=== PATIENT | female | born 1985 | race Caucasian/White ===

== ENCOUNTER 2019-03-15 20:49 | Inpatient (IN) ==
[2019-03-15] MEDS ORDERED: ZOFRAN IV ONE (21:17)
[2019-03-15] MEDS ORDERED: NS 1,000 ML IV ONE ×2 (21:17→22:33)
[2019-03-15 21:44] LABS: BASO# 0.01 X1000 (0.0-0.2); BASO% 0.1 % (0.0-0.8); EOS# 0.01 X1000 (0.0-0.7); EOS% 0.1 % (0.0-10.0); HEMATOCRIT 38.9 % (37.0-47.0); HEMOGLOBIN 13.2 g/dL (12.0-16.0); IMM GRAN# 0.01 X1000 (0.0-0.04); IMM GRAN% 0.1 % (0.0-0.5); LYMPH# 0.33 X1000 (1.2-3.4); LYMPH% 4.2 % (20.5-51.1); MCHC 33.9 g/dL (33-37); MCV 82.4 FL (81-99); MONO# 0.38 X1000 (0.11-0.59); MONO% 4.9 % (1.7-9.3); MPV 11.2 FL (7.4-10.4); NEUT# 7.06 X1000 (1.4-6.5); NEUT% 90.6 % (42.2-75.2); PLT 190 X1000 (130-400); RBC 4.72 XMIL (4.2-5.4); RDW 12.6 % (11.5-14.5)
[2019-03-15 21:58] LABS: AGAP 13; ALBUMIN 4.4 g/dL (3.5-5.0); ALKALINE PHOSPHATASE 78 U/L (32-104); BUN 12 mg/dL (8-22); CHLORIDE 100 mmol/L (98-107); COSMO 273; CREATININE 0.7 mg/dL (0.5-0.9); ESTIMATED GFR > 60; GLUCOSE 113 mg/dL (70-104); GOT 18 U/L (10-30); GPT 15 U/L (10-36); LIPASE 10 U/L (13-60); POTASSIUM 3.6 mmol/L (3.5-5.1); SODIUM 136 mmol/L (136-145); TCO2 23 mmol/L (25-35); TOTAL PROTEIN 6.9 g/dL (6.3-8.3)
[2019-03-15] MEDS ORDERED: TORADOL IM ONE (22:25)
--- NOTE | 2019-03-15 22:31 | PROVIDER DOCUMENTATION ---
This chart was entered by Tamia Taylor Scribe, acting as scribe for Pedro Lee MD. HPI-General Adult - General Chief Complaint: Nausea/Vomiting Stated Complaint: PASSED OUT Time Seen by Provider: 03/15/19 21:09 Source: patient Allergies/Adverse Reactions: Patient Allergies Allergy/AdvReac Type Severity Reaction Status Date / Time aspirin Allergy NAUSEA/VOMI Verified 08/18/18 10:50 TING meperidine HCl * Allergy Unknown Verified 08/18/18 10:50 [From Demerol] doxycycline AdvReac RASH Verified 03/15/19 20:58 Home Medications: Home Medication List Medication Instructions Recorded Confirmed Last Taken Type Levothyroxine [Synthroid] 75 mcg PO DAILY 06/28/17 03/15/19 Unknown History Ondansetron Odt [Zofran 4 mg Odt] 4 mg PO Q6H PRN PRN #12 tab 03/15/19 Unknown Rx Promethazine [Phenergan] 1 tab PO Q6H PRN PRN #12 tab 03/15/19 Unknown Rx Venlafaxine [Effexor] 75 mg PO DAILY 03/15/19 03/15/19 Unknown History - History of Present Illness -Gen Adult Nature of Presenting Problems: pt is a34 yr old female presenting with 1 day complaint of nausea/vomiting/diarrhea and headache, onset this AM, pt reports diarrhea has resolved but n/v remains. pt reports syncopal episode tonight, no injury with syncope. pt denies any fever/chills or pain Location of Pain/Injury: reports: none Pain Radiation: reports: no radiation Quality of Pain: reports: none Severity: reports: moderate Onset/Duration: reports: this morning (0300) Timing: reports: still present Context/Activities at Onset: reports: sleep Modifying Factors: improves with: other medication (phenergan/zofran without relief) Associated Symptoms: reports: diarrhea, dizziness, fatigue, headaches, nausea, syncope, vomiting, weakness. denies: fever/chills, shortness of breath Similar Symptoms Previously?: No Recently seen or treated by another doctor?: No Review of Systems - Adult - REVIEW OF SYSTEMS - ADULT Constitutional: reports: fatique. denies: chills, fever Eyes: reports: no symptoms reported Ears, Nose, Mouth & Throat: reports: no symptoms reported Cardiovascular: reports: syncope. denies: chest pain, palpitations Respiratory: denies: cough, shortness of breath Gastrointestinal: reports: diarrhea, nausea, vomiting. denies: abdominal pain Genitourinary: denies: dysuria, frequency, flank pain Musculoskeletal: denies: back pain, joint pain, neck pain Integumentary: reports: no symptoms reported Neurological: reports: dizziness/vertigo, headache/migraines, syncope Psychiatric: reports: no symptoms reported Endocrine: reports: no symptoms reported Hematologic/Lymphatic: reports: no symptoms reported Allergic/Immunologic: reports: no symptoms reported All Other Systems: Reviewed and Negative Past History - Adult - PAST MEDICAL HISTORY-ADULT Review of Records: reports: Old Records Reviewed, Nursing Assessment Review, Me dications Reviewed, Social history reviewed & non-contributory. 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) - PRIOR SURGERIES/PROCEDURES Surgical/Procedure History: reports: appendectomy, hysterectomy, bowel surgery (colon resection), other (sinus, ear) - IMMUNIZATION STATUS Childhood Immunizations: See Nurse Assessment Flu Vaccine: See Nurse Assessment - FAMILY HISTORY Family History: reviewed, not pertinent - SOCIAL HISTORY Smoking: denies Substance Use: denies Living Situation: family Physical Exam-General - PHYSICAL EXAM-ADULT Initial Vital Signs Reviewed: Yes - CONSTITUTIONAL General Appearance: appears well, alert, no apparent distress, obese - EYES Eyes: PERRL/EOMI - HEAD, EARS, NOSE, MOUTH & THROAT HENMT: normocephalic/atraumatic, moist mucous membranes, normal ENT inspection - NECK Neck: non-tender, full range of motion, supple, normal inspection - RESPIRATORY Respiratory: chest non-tender, lungs clear, normal breath sounds, no respiratory distress, no accessory muscle use - CARDIOVASCULAR Cardiovascular: normal peripheral pulses, no edema, tachycardia - GASTROINTESTINAL (ABDOMEN) Abdominal Exam: normal bowel sounds, non tender, soft - LYMPHATIC Lymphatic: no adenopathy - MUSCULOSKELETAL Back Exam: normal inspection, no CVA tenderness, no vertebral tenderness Extremity: normal range of motion, non-tender, normal gait, normal inspection - SKIN Integumentary: normal color, normal turgor, warm/dry - NEUROLOGIC Neurologic: grossly normal, no motor/sensory deficits - PSYCHIATRIC Psych/Mental Status: normal mood/affect, normal thought content, normal thought process, oriented x 3 Progress - PLAN OF CARE/RESULTS Progress/Plan/Lab Results: Vital Signs - 8 hr 03/15/19 20:53 Temperature 99.5 F Pulse Rate 126 H Respiratory Rate 18 Blood Pressure 103/72 O2 Sat by Pulse Oximetry 97 Orders Category Date Time Status Saline Loc DIRECTED Care 03/15/19 21:18 Active NPO Diet 03/15/19 21:18 Active CBC WITH ELECTRONIC DIFF [HEME] Stat Lab 03/15/19 21:18 Ordered COMPREHENSIVE METABOLIC PANEL [CHEM] Stat Lab 03/15/19 21:18 Uncollected LIPASE [CHEM] Stat Lab 03/15/19 21:18 Uncollected 0.9% Sodium Chloride Inj [Ns] 1,000 ml Med 03/15/19 21:17 Active IV 999 mls/hr Ondansetron [Zofran] Med 03/15/19 21:17 Discontinued 4 mg IV NOW ONE Result Diagrams: 03/15/19 21:27 03/15/19 21:07 - REASSESSMENT Reassessment #1 Time Reassessed: 22:25 Status: improving Reassessment Comment: results reported to patient, advised to f/u with PCP on Sunday Departure - Departure Date of Disposition Decision: 03/15/19 Time of Disposition Decision: 22:31 DIAGNOSIS: Volume depletion, Diarrheal disease Nausea and vomiting Qualifiers: Vomiting type: unspecified Vomiting Intractability: unspecified Qualified Code(s): R11.2 - Nausea with vomiting, unspecified Disposition: HOME 01 Certified Medical Emergency: Emergent Condition: Stable Additional Instructions: We have examined and treated you today on an emergency basis only. This was not a substitute for, or an effort to provide, complete medical care. In most cases, you must let your doctor check you again. Tell your doctor about any new or lasting problems. We cannot recognize and treat all injuries or illnesses in one Emergency Department visit. Patient verbalizes understanding of treatment plan, medication, and side effects and agrees with treatment plan. Patient leaves ER in stable condition and ambulatory state. Return to ER as needed. Discharge instructions reviewed verbally and given to patient in written form. Follow up with primary care provider on Sunday without fail. Prescriptions: Promethazine [Phenergan] 1 tab PO Q6H PRN PRN #12 tab PRN Reason: Nausea Ondansetron Odt [Zofran 4 mg Odt] 4 mg PO Q6H PRN PRN #12 tab PRN Reason: Nausea Referrals and Follow-Ups: Saul Higuera MD [Primary Care Provider] - - Critical Care Note This patient required my direct & personal management of CC.: No Attestation - Physician/ CAMMIE Attestation Patient care was provided by Advanced Practice Provider:: No The physician spent face to face time with patient:: Yes Advanced Practice Provider documentation review:: Supervising physician onsite and consulted in the evaluation and care of this patient. The physician did have a face to face encounter with the patient. This chart was documented by the indicated scribe, (Tamia Taylor Scribe) and ac curately reflects the services I performed and decisions made by me, Pedro Lee MD, as attested by the provider's signature.
[2019-03-15 23:03] LABS: INFLUENZA A NEGATIVE (NEGATIVE); INFLUENZA B NEGATIVE (NEGATIVE)
[2019-03-16] MEDS ORDERED: ZOFRAN IV PRN (00:06)
[2019-03-16] MEDS ORDERED: MORPHINE IV PRN ×2 (00:06→06:16)
[2019-03-16] MEDS ORDERED: NS 1,000 ML IV ONE (00:06)
[2019-03-16 06:08] LABS: HEMATOCRIT 34.3 % (37.0-47.0); HEMOGLOBIN 11.1 g/dL (12.0-16.0); IMM GRAN# 0.01 X1000 (0.0-0.04); IMM GRAN% 0.3 % (0.0-0.5); LYMPH# 0.58 X1000 (1.2-3.4); LYMPH% 14.8 % (20.5-51.1); MCHC 32.4 g/dL (33-37); MCV 83.5 FL (81-99); MONO# 0.23 X1000 (0.11-0.59); MONO% 5.9 % (1.7-9.3); MPV 11.4 FL (7.4-10.4); NEUT# 3.11 X1000 (1.4-6.5); PLT 143 X1000 (130-400); RBC 4.11 XMIL (4.2-5.4); RDW 12.6 % (11.5-14.5); WBC 3.93 X1000 (4.8-10.8)
[2019-03-16 06:16] LABS: AGAP 8; BUN 9 mg/dL (8-22); CALCIUM 7.6 mg/dL (8.8-10.2); CHLORIDE 109 mmol/L (98-107); COSMO 276; CREATININE 0.5 mg/dL (0.5-0.9); ESTIMATED GFR > 60; GLUCOSE 95 mg/dL (70-104); POTASSIUM 3.2 mmol/L (3.5-5.1); SODIUM 139 mmol/L (136-145); TCO2 21 mmol/L (25-35)
[2019-03-16] MEDS ORDERED: TYLENOL PO PRN (08:05)
[2019-03-16] MEDS ORDERED: SODIUM CHLORIDE 0.9% INJ PRN (08:05)
[2019-03-16] MEDS ORDERED: PHENERGAN IV PRN (08:05)
[2019-03-16] MEDS ORDERED: KLOR-CON PO ONE (08:08)
[2019-03-16] MEDS ORDERED: SODIUM CHLORIDE 0.9% INJ SCH (08:15)
[2019-03-16 08:32] LABS: HEMOGLOBIN A1C 4.5 % (4.8-6.0)
[2019-03-16 08:40] LABS: FREE T4 1.03 ng/dL (0.93-1.70); TSH 0.43 uIUmL (0.27-4.20)
--- NOTE | 2019-03-16 09:38 | Diag Imaging Result Doc PS360 ---
EXAM: ABDOMEN FLAT/UPRIGHT INDICATION: nausea/vomiting/diarrhea TECHNIQUE: 2 views COMPARISON: None. FINDINGS: There are nonspecific bowel gas and stool patterns. There is no obstructive bowel pattern. There is no evidence of large volume free abdominal gas. There is no evidence of organomegaly. IMPRESSION: Nonspecific abdomen. Electronically signed by Leonel Fortune 03/16/2019 9:36 AM
--- NOTE | 2019-03-16 11:00 | HISTORY AND PHYSICAL ---
PRIMARY CARE PROVIDER: Doris Champion. CHIEF COMPLAINT: Nausea, vomiting, diarrhea and passed out. HISTORY OF PRESENT ILLNESS: Ms Ebony Michaels is a 34-year-old female with a medical history of Curtis-Danlos syndrome, migraines, anxiety, Katheryn's, asthma who states that yesterday morning around 3 a.m., she started developing nausea, vomiting, and diarrhea. The severeness of it lasted at least an hour. She finally decided to try and get a up and go back to bed but she passed out. She denies hitting her head and since that time, she has been having headaches when she would sit up or stand up along with dizziness. She was having abdominal cramping yesterday. No vomiting. She did have nausea. Did not have any vomiting. No diarrhea. One more spell of diarrhea this morning but otherwise she can tell that her stomach is starting to feel better. She still continues to feel a little dizzy with headache if she tries to sit up or stand up. Her 5 days prior to also had a viral gastroenteritis as well. PAST MEDICAL HISTORY: 1. Curtis-Danlos syndrome. Symptoms that she has from that as she tends to have prolonged bleeding, the occasional blood in the urine or stool, but none recently and it causes her to have some constipation. 2. Migraines. 3. Anxiety. 4. Hypothyroidism or Katheryn's. 5. Asthma. SURGICAL HISTORY: 1. Hysterectomy. 2. Sinus surgery. 3. Tympanomastoidectomy. 4. Appendectomy. SOCIAL HISTORY: Denies tobacco, alcohol or illicit drug use. She is with 2 kids. FAMILY HISTORY: Oldest son has autism. He also has intracranial pressure hypertension. Most recently had to have a lumbar puncture. Her youngest daughter has a neuro degenerative disorder called alternating hemiplegia of childhood. Apparently it alternates between Parkinson's or an Alzheimer's type disease. Her oldest is off the charts as far is intelligence and then her youngest is at the lower part of the chart. Apparently, the kids are in studies due to all of the genetic disorders they have. Her mother had thyroid nodules, had to have a thyroidectomy. She had COPD and rheumatoid arthritis. Her father had a myocardial infarction in his late 30s. He had eye cancer, diabetes. He also had Curtis-Danlos syndrome. Her brother has possible Marfan's, but he has the Curtis-Danlos syndrome as well. ALLERGIES: Doxycycline, aspirin and Demerol. HOME MEDICATIONS: 1. Effexor 75 mg p.o. daily. 2. Synthroid 75 mcg p.o. daily. REVIEW OF SYSTEMS: Fourteen point review of systems are complete and all were negative for those mentioned above HPI. PHYSICAL EXAMINATION: VITAL SIGNS: Temperature 98.4 degrees, heart rate 82, respiratory rate 18, blood pressure 92/58, O2 saturation 98% on room air. She had orthostatics around 5:30 this morning. Supine: Heart rate 80 blood pressure 103/64. Sitting: Heart rate 88, blood pressure 95/62. Standing: Heart rate 107, blood pressure 96/47. GENERAL: Ms. Ebony michaels is a 34-year-old female. She is in no acute distress. She is able answer questions appropriately. HEENT: Atraumatic, normocephalic. Pupils equal, round, reactive to light. Extraocular movements intact. Mucous membranes are dry. NECK: Trachea midline. CARDIOVASCULAR: S1, S2. Regular rate and rhythm. No rubs, gallops, murmurs. No lower extremity edema. +2 dorsalis and radial pulses. Negative for JVD or carotid bruits. PULMONARY: Clear to auscultation. Bilateral breath sounds. No accessory muscle use or work of breathing noted. ABDOMEN: Soft. Hyperactive bowel sounds. Shows nondistended. EXTREMITIES: Moves all extremities equally. Full range of motion. NEUROLOGIC: A and O x3. Follows commands. Sensory is intact. SKIN: Warm dry intact. LABORATORY DATA: White blood cells 3000, hemoglobin 11, hematocrit 34, platelet count 143,000. Sodium 139, potassium 3.2, BUN 9, creatinine 0.5, glucose 95. Hemoglobin A1c is 4.5, calcium 7.6, magnesium 1.6, triglycerides 50, total cholesterol 127, lipase 10, TSH 0.43, free T4 is 1.03. Flu negative. IMAGING: She has had an abdominal x-ray he that was just performed, but I do not believe it has got an official report at this time. ASSESSMENT AND PLAN: 1. Viral gastroenteritis. Antiemetics as needed. IV fluid hydration. 2. Orthostatic hypotension secondary to nausea, vomiting, diarrhea causing dehydration. She is getting IV fluids. We will do orthostatics every 8 to 12 hours. Once that it has resolved she should be stable for discharge home. 3. Syncope secondary to orthostatic hypotension. No injuries. 4. Curtis-Danlos syndrome. No complications from that. She states that she can have blood in the urine and stool at times and causes constipation, prolonged bleeding, but she has not had any issues with that recently. 5. Migraine. She does have a headache, but it is only when she sits up or stands up, which is more associated with the hypotension she experiences. 6. Anxiety. Continue her Effexor. 7. Hypothyroidism or Katheryn's. Continue Synthroid. 8. Mild asthma no exacerbation at this time. No complaints with that. 9. Deep venous thrombosis prophylaxis, sequential compression devices. Dictated by GUERITA Al for Brian Hill MD cc: GUERITA Al MD
[2019-03-16] MEDS: NS 1,000 ML IV SCH ×2 (11:15→20:17)
[2019-03-16] MEDS: PROTONIX IV SCH (11:15)
[2019-03-16] MEDS: EFFEXOR XR PO SCH (11:15)
[2019-03-16] MEDS: SYNTHROID PO SCH (11:16)
[2019-03-16] MEDS ORDERED: MAGNESIUM SULFATE 2 GM/S.W.I. 2 GM/50 ML IVPB IV ONE (11:29)
--- NOTE | 2019-03-16 14:22 | HISTORY AND PHYSICAL ---
ADDENDUM: Patient seen and examined by me [id number]. The laboratory, vital signs and images were reviewed. The patient presented to the emergency department with nausea, vomiting and diarrhea and apparently she has been having some syncopal episodes, as per the patient the syncope happened after she tried to stand up and walk, this is not the first time that ever happen. As per the patient, that happened before due to dehydration, apparently this patient has a history of Curtis-Danlos syndrome, migraines, hypothyroidism, anxiety, as per the patient she easily gets dehydrated and for the past few days she has been having nausea, vomiting and diarrhea, as per the patient specifically yesterday at 3 a.m. she started having some nausea then vomiting with diarrhea. She did not see any blood, no hematochezia, no fever, no chills but she was feeling really weak and then she decided to get up and she apparently passed out. Laboratory seems to be stable and actually her white blood cell count is normal as well as her BUN and creatinine, electrolytes are a little bit out of balance especially potassium and a little bit borderline low magnesium which I will replace, her physical exam is benign. Her abdomen is slightly tender to palpation mostly at the level of the periumbilical area but the rest of the physical exam to be within normal limits, she is getting fluids and I will put her back on her home medication, as per the patient she recently has been treated for bronchitis and she took antibiotics, I believe she stopped taking it 3 to 4 days ago, I will rule out C difficile colitis because of that. I agree with the rest of the nurse practitioner's assessment and plan. cc: Brian Hill MD
[2019-03-17] MEDS: NS 1,000 ML IV SCH (04:32)
[2019-03-17 05:58] LABS: BASO# 0.01 X1000 (0.0-0.2); BASO% 0.2 % (0.0-0.8); EOS# 0.06 X1000 (0.0-0.7); EOS% 1.2 % (0.0-10.0); HEMATOCRIT 33.1 % (37.0-47.0); HEMOGLOBIN 10.9 g/dL (12.0-16.0); LYMPH# 0.83 X1000 (1.2-3.4); LYMPH% 17.3 % (20.5-51.1); MCH 27.3 PG (27-31); MCHC 32.9 g/dL (33-37); MONO# 0.41 X1000 (0.11-0.59); MONO% 8.5 % (1.7-9.3); MPV 11.3 FL (7.4-10.4); NEUT% 72.8 % (42.2-75.2); PLT 158 X1000 (130-400); RBC 3.99 XMIL (4.2-5.4); RDW 12.6 % (11.5-14.5); WBC 4.81 X1000 (4.8-10.8)
[2019-03-17] MEDS: SYNTHROID PO SCH (06:10)
[2019-03-17 06:11] LABS: AGAP 8; ALBUMIN 3.4 g/dL (3.5-5.0); ALKALINE PHOSPHATASE 61 U/L (32-104); BUN 5 mg/dL (8-22); CALCIUM 7.6 mg/dL (8.8-10.2); CHLORIDE 111 mmol/L (98-107); COSMO 277; CREATININE 0.4 mg/dL (0.5-0.9); ESTIMATED GFR > 60; GLUCOSE 99 mg/dL (70-104); GOT 14 U/L (10-30); GPT 13 U/L (10-36); MAGNESIUM 1.8 mg/dL (1.5-2.7); POTASSIUM 3.7 mmol/L (3.5-5.1); SODIUM 140 mmol/L (136-145); TCO2 20 mmol/L (25-35); TOTAL PROTEIN 5.4 g/dL (6.3-8.3)
[2019-03-17] MEDS: EFFEXOR XR PO SCH (08:30)
[2019-03-17] MEDS: PROTONIX IV SCH (08:30)
[2019-03-17 11:19] VITALS: BP 98/53
--- NOTE | 2019-03-18 09:23 | DISCHARGE SUMMARY ---
ADMISSION DATE: 03/16/2019 DISCHARGE DATE: 03/17/2019 SUBJECTIVE: She is tolerating p.o. now without difficulty. No major issues she has and no more orthostasis. She seems to be doing fine. We are going to discharge her home today and see how she does. Continue her regular medications. Follow up with her PCP p.r.n. OBJECTIVE: Her abdominal exam is soft, nontender, nondistended. Bowel sounds are positive. This is a [id number] encounter note with Barb Kent. cc: Jeffy Caballero MD
--- NOTE | 2019-03-18 10:40 | DISCHARGE SUMMARY ---
ADMISSION DATE: 03/16/2019 DISCHARGE DATE: 03/17/2019 PRIMARY CARE PROVIDER: Dr. Saul Higuera. DISCHARGE DIAGNOSES: 1. Viral gastroenteritis, improved. 2. Orthostatic hypotension secondary to nausea, vomiting, diarrhea causing dehydration, resolved. 3. Syncope secondary to orthostatic hypotension, resolved. 4. Curtis-Danlos syndrome aware. 5. Migraine. Continue home medications. 6. Anxiety. Continue Effexor. 7. Hypothyroidism or Katheryn's. A continue Synthroid. 8. Mild asthma, no exacerbation. HOSPITAL COURSE: Briefly, Ms. Ortega is a 34-year-old female with past medical history of Curtis-Danlos syndrome, migraines, anxiety, Katheryn's, asthma who reported day before yesterday she started developing nausea, vomiting, and diarrhea. The severeness of it lasted over an hour. She tried to get out of bed and passed out. She still continues to feel a little dizzy with a headache if she tries to sit or stand. She also reports her had viral gastroenteritis 5 days prior. She was found to be dehydrated, was initiated on IV hydration. Orthostatics were ordered. She has been hydrated overnight. Vital signs are stable. She had no more episodes of vomitus or diarrhea. She is hemodynamically stable. Will be discharged back home today. VITAL SIGNS: Temperature is 97.8 degrees, heart rate 74, respirations 18, blood pressure 98/53, O2 is 99% on room air. DISCHARGE DIET: Regular. DISCHARGE MEDICATIONS: 1. Effexor 75 mg p.o. daily. 2. Synthroid 75 mcg p.o. daily. 3. Phenergan 25 mg p.o. q. 6 hours p.r.n. nausea or vomiting. FOLLOWUP: Ms. Ortega is being discharged back home with self care. She is take all medications as prescribed. Continue to adequately hydrate herself. Follow up with her primary care provider in the next 1 to 2 weeks. She can return to the ED or call 911 for any worsening of symptoms. Dictated by GUERITA Echevarria for Jeffy Caballero MD cc: MD Saul Smith MD
== END 2019-03-17 13:41 | disposition home or self-care (01) | DRG 392 ==
LOC: P.ED 20:49 → SUATTDRO 03-16 00:21 → P.MEDSURG 03-16 00:21
PROVIDERS: ATTEND Internal Medicine